=== PATIENT | male | born 1945 | race Caucasian/White ===

== ENCOUNTER 2021-01-25 16:09 | Inpatient (IN) | payer MEDICARE, OTHER ==
[~2021-01-25] VITALS: Ht 185.4 cm; Wt 156.6 kg
[2021-01-25 17:13] LABS: HEMOGLOBIN 10.8 gm/dl (14.0-17.5); RED BLOOD COUNT 3.33 M/UL (4.20-5.50)
[2021-01-25 17:40] LABS: BUN/CREATININE RATIO 15 (0-10)
[2021-01-26 00:29] LABS: HEMOGLOBIN 10.8 gm/dl (14.0-17.5)
[2021-01-26] MEDS ORDERED: BUMETANIDE2 MG PO (01:36)
[2021-01-26] MEDS ORDERED: PACERONE200 MG PO (01:37)
[2021-01-26] MEDS ORDERED: ZOLOFT50 MG PO (01:38)
[2021-01-26] MEDS ORDERED: ASPIRIN 325MG325 MG PO (01:38)
[2021-01-26] MEDS ORDERED: SIMVASTATIN10 MG PO (01:39)
[2021-01-26] MEDS ORDERED: TAMSULOSIN HCL0.4 MG PO (01:39)
[2021-01-26] MEDS ORDERED: DOCUSATE SODIU100 M1 PO (01:40)
[2021-01-26] MEDS ORDERED: HYDROCODON-ACE1 EAC6 PO (01:41)
[2021-01-26] MEDS ORDERED: VITAMIN D21250 MCG PO (01:43)
[2021-01-26] MEDS ORDERED: LEVOTHYROXINE25 MC1 PO (01:43)
[2021-01-26] MEDS ORDERED: MIRTAZAPINE7.5 MG PO (01:44)
[2021-01-26] MEDS ORDERED: NEURONTIN300 MG PO (01:45)
[2021-01-26] MEDS ORDERED: ENULOSE10 GM/15 M PO (01:45)
[2021-01-26] MEDS ORDERED: FERROUS SULFAT325 MG PO (01:46)
[2021-01-26] MEDS ORDERED: FLONASE 0.05% N16 GM (01:47)
[2021-01-26] MEDS ORDERED: POTASSIUM CHLO20 ME1 PO (01:49)
[2021-01-26] MEDS ORDERED: ZAROXOLYN/DIUL2.5 MG PO (01:54)
[2021-01-26] MEDS ORDERED: ALLOPURINOL300 MG PO (01:55)
[2021-01-26] MEDS ORDERED: HUMULIN N100 UNIT/1 SC (01:56)
[2021-01-26] MEDS ORDERED: ZOFRAN4 MG PO (01:58)
[2021-01-26] MEDS ORDERED: NOVOLIN 70100 UNIT/1 SQ (01:58)
[2021-01-26] MEDS ORDERED: MILK OF MA400 MG/5 M PO (01:59)
[2021-01-26] MEDS ORDERED: ADULT GLYCERIN1 EACH PR (02:00)
[2021-01-26 06:07] LABS: HEMOGLOBIN 10.3 gm/dl (14.0-17.5); RED BLOOD COUNT 3.15 M/UL (4.20-5.50); WHITE BLOOD COUNT 6.7 K/UL (4.5-11.0)
--- NOTE | 2021-01-27 02:23 | NUR ---
01/27/2021 @ 00:10 - Patient placed on bariatric bed. 3 AUTOMATION ANALYST's and one RN present. Patient tolerated well.
[2021-01-27 05:06] LABS: HEMOGLOBIN 9.4 gm/dl (14.0-17.5); RED BLOOD COUNT 2.93 M/UL (4.20-5.50); WHITE BLOOD COUNT 6.5 K/UL (4.5-11.0)
[2021-01-27 09:12] LABS: HBSAG SCREEN Negative (Negative); HEP A AB, IGM Negative (Negative); HEP B CORE AB, IGM Negative (Negative); HEP C VIRUS AB <0.1 (0.0-0.9)
[2021-01-28 07:39] LABS: HEMOGLOBIN 9.1 gm/dl (14.0-17.5); RED BLOOD COUNT 2.9 M/UL (4.20-5.50)
[2021-01-28 09:10] LABS: CREATININE, URINE 48.2 mg/dL (Not Estab.)
[2021-01-29 05:51] LABS: HEMOGLOBIN 9.4 gm/dl (14.0-17.5); RED BLOOD COUNT 2.9 M/UL (4.20-5.50); WHITE BLOOD COUNT 6.4 K/UL (4.5-11.0)
[2021-01-30 03:22] LABS: HEMOGLOBIN 9.1 gm/dl (14.0-17.5); RED BLOOD COUNT 2.85 M/UL (4.20-5.50); WHITE BLOOD COUNT 6.6 K/UL (4.5-11.0)
[2021-01-30 07:13] LABS: COMPLEMENT C3, SERUM 106 mg/dL (82-167); COMPLEMENT C4, SERUM 21 mg/dL (12-38)
[2021-01-30 13:47] LABS: URINE CREATININE 68.4 mg/dL
[2021-01-30 16:13] LABS: ALBUMIN 2.9 g/dL (2.9-4.4); ALPHA-1-GLOBULIN 0.2 g/dL (0.0-0.4); ALPHA-2-GLOBULIN 0.6 g/dL (0.4-1.0); BETA GLOBULIN 0.9 g/dL (0.7-1.3); GAMMA GLOBULIN 1.4 g/dL (0.4-1.8); GLOBULIN, TOTAL 3.1 g/dL (2.2-3.9); IMMUNOGLOBULIN A, QN, SERUM 467 mg/dL (61-437); IMMUNOGLOBULIN G, QN, SERUM 1348 mg/dL (603-1613); IMMUNOGLOBULIN M, QN, SERUM 113 mg/dL (15-143); M-SPIKE Not Observed g/dL (Not Observed)
--- NOTE | 2021-01-31 01:06 | NUR ---
CALLED PATIENTS DAVID TO OBTAIN VERBAL CONSENT FOR PROCEDURE AND RIVAS WITNESSED BY RONDA.
[2021-01-31 04:06] LABS: HEMOGLOBIN 9.5 gm/dl (14.0-17.5); RED BLOOD COUNT 2.94 M/UL (4.20-5.50); WHITE BLOOD COUNT 6.1 K/UL (4.5-11.0)
--- NOTE | 2021-01-31 10:05 | NUR ---
PATIENT RETURNED FROM O.R, HE HAS A DIALYSIS CATH TO THE RIGHT NECK, TAPE WAS LOOSE SO I REINFORCED WITH CLOTH TAPE. HE HAS A NEW SKIN TEAR TO THE RIGHT FOREARM, TEGADERM WAS PLACED BY O.R. ALL OTHER ASSESSMENTS ARE WNL FROM PRE SURGERY.
[2021-02-01 07:17] LABS: HEMOGLOBIN 9.5 gm/dl (14.0-17.5); RED BLOOD COUNT 2.95 M/UL (4.20-5.50); WHITE BLOOD COUNT 6.3 K/UL (4.5-11.0)
[2021-02-01 15:14] LABS: ANTIMYELOPEROXIDASE (MPO) ABS <9.0 U/mL (0.0-9.0); ANTIPROTEINASE 3 (PR-3) ABS <3.5 U/mL (0.0-3.5); ATYPICAL PANCA <1:20 titer (Neg:<1:20); CYTOPLASMIC (C-ANCA) <1:20 titer (Neg:<1:20); PERINUCLEAR (P-ANCA) <1:20 titer (Neg:<1:20)
[2021-02-02 07:51] LABS: HEMOGLOBIN 8.8 gm/dl (14.0-17.5); RED BLOOD COUNT 2.8 M/UL (4.20-5.50); WHITE BLOOD COUNT 5.7 K/UL (4.5-11.0)
[2021-02-03 08:22] LABS: HEMOGLOBIN 8.9 gm/dl (14.0-17.5); RED BLOOD COUNT 2.81 M/UL (4.20-5.50); WHITE BLOOD COUNT 5.1 K/UL (4.5-11.0)
[2021-02-04 07:33] LABS: HEMOGLOBIN 9.2 gm/dl (14.0-17.5); RED BLOOD COUNT 2.88 M/UL (4.20-5.50); WHITE BLOOD COUNT 5.1 K/UL (4.5-11.0)
[2021-02-05 06:48] LABS: HEMOGLOBIN 9.2 gm/dl (14.0-17.5); RED BLOOD COUNT 2.87 M/UL (4.20-5.50); WHITE BLOOD COUNT 4.9 K/UL (4.5-11.0)
[2021-02-06 06:27] LABS: HEMOGLOBIN 8.9 gm/dl (14.0-17.5); RED BLOOD COUNT 2.81 M/UL (4.20-5.50); WHITE BLOOD COUNT 5.4 K/UL (4.5-11.0)
--- NOTE | 2021-02-06 08:45 | NUR ---
PT TAKEN TO DIALYSIS , NO DISTRESS NOTED
--- NOTE | 2021-02-06 15:12 | NUR ---
PT HAS HAD A LARGE BOWEL MOVEMENT, HE IS RESTING AT TH TIME AND HAS HIS CALL HAWK AND PHONE IN REACH. DENIES NEEDS OR C/O AT [facility] TIME
--- NOTE | 2021-02-06 17:51 | NUR ---
chest tube output 140cc
[2021-02-07 07:00] LABS: HEMOGLOBIN 9.2 gm/dl (14.0-17.5); RED BLOOD COUNT 2.84 M/UL (4.20-5.50); WHITE BLOOD COUNT 5.4 K/UL (4.5-11.0)
[2021-02-08 08:57] LABS: HEMOGLOBIN 9.4 gm/dl (14.0-17.5); RED BLOOD COUNT 2.89 M/UL (4.20-5.50); WHITE BLOOD COUNT 5.1 K/UL (4.5-11.0)
--- NOTE | 2021-02-08 17:32 | NUR ---
pt taken to dialysis via bed.
[2021-02-09 06:11] LABS: HEMOGLOBIN 9.2 gm/dl (14.0-17.5); RED BLOOD COUNT 2.81 M/UL (4.20-5.50)
[2021-02-10 06:12] LABS: HEMOGLOBIN 8.7 gm/dl (14.0-17.5); RED BLOOD COUNT 2.7 M/UL (4.20-5.50); WHITE BLOOD COUNT 4.7 K/UL (4.5-11.0)
[2021-02-11 06:57] LABS: HEMOGLOBIN 9.1 gm/dl (14.0-17.5); RED BLOOD COUNT 2.8 M/UL (4.20-5.50); WHITE BLOOD COUNT 5.1 K/UL (4.5-11.0)
[2021-02-12 06:23] LABS: HEMOGLOBIN 8.7 gm/dl (14.0-17.5); RED BLOOD COUNT 2.71 M/UL (4.20-5.50); WHITE BLOOD COUNT 4.6 K/UL (4.5-11.0)
[2021-02-13 07:35] LABS: HEMOGLOBIN 9.1 gm/dl (14.0-17.5); RED BLOOD COUNT 2.89 M/UL (4.20-5.50); WHITE BLOOD COUNT 4.3 K/UL (4.5-11.0)
[2021-02-14 03:58] LABS: HEMOGLOBIN 8.9 gm/dl (14.0-17.5); RED BLOOD COUNT 2.79 M/UL (4.20-5.50); WHITE BLOOD COUNT 4.3 K/UL (4.5-11.0)
[2021-02-15 07:25] LABS: HEMOGLOBIN 8.9 gm/dl (14.0-17.5); RED BLOOD COUNT 2.82 M/UL (4.20-5.50); WHITE BLOOD COUNT 4.8 K/UL (4.5-11.0)
[2021-02-16 03:42] LABS: RED BLOOD COUNT 2.81 M/UL (4.20-5.50)
[2021-02-17 06:43] LABS: HEMOGLOBIN 9.1 gm/dl (14.0-17.5); RED BLOOD COUNT 2.85 M/UL (4.20-5.50); WHITE BLOOD COUNT 4.5 K/UL (4.5-11.0)
[2021-02-18 06:57] LABS: HEMOGLOBIN 9.1 gm/dl (14.0-17.5); RED BLOOD COUNT 2.82 M/UL (4.20-5.50); WHITE BLOOD COUNT 4.6 K/UL (4.5-11.0)
[2021-02-19 04:08] LABS: RED BLOOD COUNT 2.81 M/UL (4.20-5.50); WHITE BLOOD COUNT 5.4 K/UL (4.5-11.0)
[2021-02-20 07:48] LABS: HEMOGLOBIN 8.8 gm/dl (14.0-17.5); RED BLOOD COUNT 2.81 M/UL (4.20-5.50); WHITE BLOOD COUNT 4.2 K/UL (4.5-11.0)
--- NOTE | 2021-02-20 13:47 | NUR ---
patient back on the floor from dialysis.
[2021-02-21 04:11] LABS: HEMOGLOBIN 8.4 gm/dl (14.0-17.5); RED BLOOD COUNT 2.63 M/UL (4.20-5.50); WHITE BLOOD COUNT 4.2 K/UL (4.5-11.0)
[2021-02-22 03:37] LABS: RED BLOOD COUNT 2.81 M/UL (4.20-5.50); WHITE BLOOD COUNT 4.5 K/UL (4.5-11.0)
--- NOTE | 2021-02-22 12:16 | NUR ---
patient back on the floor, report received from dialysis nurse he will be back down for his dialysis r/t his catheter not working.
[2021-02-23 03:06] LABS: HEMOGLOBIN 9.3 gm/dl (14.0-17.5); RED BLOOD COUNT 2.83 M/UL (4.20-5.50); WHITE BLOOD COUNT 4.5 K/UL (4.5-11.0)
[2021-02-24 02:27] LABS: HEMOGLOBIN 8.9 gm/dl (14.0-17.5); RED BLOOD COUNT 2.79 M/UL (4.20-5.50); WHITE BLOOD COUNT 4.6 K/UL (4.5-11.0)
[2021-02-24 09:13] LABS: HBSAG SCREEN Negative (Negative); HEPATITIS B SURF AB QUANT <3.1 mIU/mL (Immunity>9.9)
[2021-02-26 04:13] LABS: RED BLOOD COUNT 2.82 M/UL (4.20-5.50)
[2021-02-27 06:51] LABS: HEMOGLOBIN 9.2 gm/dl (14.0-17.5); RED BLOOD COUNT 2.91 M/UL (4.20-5.50); WHITE BLOOD COUNT 4.2 K/UL (4.5-11.0)
[2021-02-28 02:37] LABS: HEMOGLOBIN 9.2 gm/dl (14.0-17.5); RED BLOOD COUNT 2.92 M/UL (4.20-5.50)
[2021-02-28 12:13] LABS: HBSAG SCREEN Negative (Negative); HEP A AB, IGM Negative (Negative); HEP B CORE AB, IGM Negative (Negative); HEP C VIRUS AB <0.1 (0.0-0.9)
[2021-03-01 07:37] LABS: HEMOGLOBIN 8.8 gm/dl (14.0-17.5); RED BLOOD COUNT 2.82 M/UL (4.20-5.50); WHITE BLOOD COUNT 4.1 K/UL (4.5-11.0)
[2021-03-02 07:17] LABS: HEMOGLOBIN 9.7 gm/dl (14.0-17.5); RED BLOOD COUNT 2.95 M/UL (4.20-5.50); WHITE BLOOD COUNT 4.5 K/UL (4.5-11.0)
--- NOTE | 2021-03-02 18:04 | NUR ---
PT IS PLANNING ON BEING DISCHARGED TO [facility] FRIDAY, MARCH 05, 2021. PT IS REQUIRED TO HAVE A NEGATIVE TB TEST BUT ACCORDING TO DR. ALBARADO, THE [facility] WILL NOT TAKE A CHEST X-RAY. QUANTIFERON GOLD TEST HAS BEEN PERFORMED, PENDING RESULTS. OPTIONS CONSIDERED SUCH TB SKIN TEST VS SPUTUM CULTURE. SPOKE WITH LAB AND THE LAB NO LONGER PERFORMS THE TB SKIN TEST HERE IN THE HOSPITAL. SPUTUM CULTURE WILL TAKE A WHILE TO PROCESS AND RETURN WITH RESULTS. PENDING NEGATIVE RESULTS FOR DISCHARGE TO [facility].
[2021-03-03 06:25] LABS: HEMOGLOBIN 9.5 gm/dl (14.0-17.5); RED BLOOD COUNT 2.97 M/UL (4.20-5.50); WHITE BLOOD COUNT 5.2 K/UL (4.5-11.0)
[2021-03-04 06:55] LABS: HEMOGLOBIN 9.4 gm/dl (14.0-17.5); RED BLOOD COUNT 2.93 M/UL (4.20-5.50); WHITE BLOOD COUNT 4.3 K/UL (4.5-11.0)
[2021-03-05 07:20] LABS: HEMOGLOBIN 9.6 gm/dl (14.0-17.5); RED BLOOD COUNT 3.07 M/UL (4.20-5.50); WHITE BLOOD COUNT 4.7 K/UL (4.5-11.0)
[2021-03-06 06:14] LABS: HEMOGLOBIN 9.5 gm/dl (14.0-17.5); RED BLOOD COUNT 3.01 M/UL (4.20-5.50); WHITE BLOOD COUNT 4.8 K/UL (4.5-11.0)
--- NOTE | 2021-03-06 10:24 | NUR ---
pt gone to dialysis at 0930 with transport
[2021-03-07 06:59] LABS: HEMOGLOBIN 10.2 gm/dl (14.0-17.5); RED BLOOD COUNT 3.11 M/UL (4.20-5.50)
[2021-03-07 07:02] LABS: WHITE BLOOD COUNT 6.5 K/UL (4.5-11.0)
--- NOTE | 2021-03-07 08:19 | NUR ---
PATIENT TB SKIN TEST IS NEGATIVE
[2021-03-07 09:14] LABS: QUANTIFERON MITOGEN VALUE >10.00 IU/mL (.); QUANTIFERON NIL VALUE 0.17 IU/mL (.); QUANTIFERON TB1 AG VALUE 0.17 IU/mL (.); QUANTIFERON TB2 AG VALUE 0.14 IU/mL (.); QUANTIFERON-TB GOLD PLUS Negative (Negative)
[2021-03-07] MEDS ORDERED: HYDROCODON-ACE1 EAC6 PO (09:22)
[2021-03-07] MEDS ORDERED: NEURONTIN300 MG PO (09:22)
[2021-03-07] MEDS ORDERED: IPRAT-ALBUT 0.5-3 ML NEB (09:22)
[2021-03-07] MEDS ORDERED: XIFAXAN 550 MG550 MG PO (09:22)
[2021-03-07] MEDS ORDERED: HUMALOG 10100 UNITS/ SC ×2 (09:22)
[2021-03-07] MEDS ORDERED: ALLOPURINOL100 MG PO (09:22)
[2021-03-07] MEDS ORDERED: LANTUS INS100 UTS/M1 SQ (09:22)
--- NOTE | 2021-03-07 12:39 | NUR ---
CALLED REPORT TO ASHUTOSH CASON RN AT [facility]. LET [facility] KNOW PATIENT NEEDS TRANSFER, THEY COULD NOT GIVE ESTIMATED TIME. WCTM CLOSELY.
== END 2021-03-07 18:40 | DRG 673 ==
LOC: ER1 16:09 → CDU 18:37 → M/S 18:37
PROVIDERS: Internal Medicine; Internal Medicine Nephrology; Nurse Practitioner; Physician Assistant; Surgery; ADMIT Internal Medicine
PROC: 0JH63XZ Insertion of Tunneled Vascular Access Device into Chest Subcutaneous Tissue and Fascia, Percutaneous Approach (ICD-10-PCS; 2021-01-31)
PROC: 02HV33Z Insertion of Infusion Device into Superior Vena Cava, Percutaneous Approach (ICD-10-PCS; 2021-01-31)
PROC: 5A1D70Z Performance of Urinary Filtration, Intermittent, Less than 6 Hours Per Day (ICD-10-PCS; principal; 2021-01-31 07:30)
DX: N17.9 Acute kidney failure, unspecified (principal); K72.00 Acute and subacute hepatic failure without coma; E66.2 Morbid (severe) obesity with alveolar hypoventilation; Z20.822 Contact with and (suspected) exposure to COVID-19; Z68.43 Body mass index [BMI] 50.0-59.9, adult; J96.11 Chronic respiratory failure with hypoxia; I13.2 Hypertensive heart and chronic kidney disease with heart failure and with stage 5 chronic kidney disease, or end stage renal disease; L03.116 Cellulitis of left lower limb; L03.115 Cellulitis of right lower limb; J96.12 Chronic respiratory failure with hypercapnia; I25.10 Atherosclerotic heart disease of native coronary artery without angina pectoris; N18.6 End stage renal disease; E87.6 Hypokalemia; N25.81 Secondary hyperparathyroidism of renal origin; G89.29 Other chronic pain; I87.2 Venous insufficiency (chronic) (peripheral); I48.0 Paroxysmal atrial fibrillation; E11.22 Type 2 diabetes mellitus with diabetic chronic kidney disease; I89.0 Lymphedema, not elsewhere classified; L30.9 Dermatitis, unspecified; E88.09 Other disorders of plasma-protein metabolism, not elsewhere classified; D63.1 Anemia in chronic kidney disease; K75.81 Nonalcoholic steatohepatitis (NASH); D53.9 Nutritional anemia, unspecified; G25.3 Myoclonus; K74.60 Unspecified cirrhosis of liver; E87.5 Hyperkalemia; E78.5 Hyperlipidemia, unspecified; E55.9 Vitamin D deficiency, unspecified; M10.9 Gout, unspecified; L89.152 Pressure ulcer of sacral region, stage 2; K59.00 Constipation, unspecified; F41.9 Anxiety disorder, unspecified; N40.0 Benign prostatic hyperplasia without lower urinary tract symptoms; E11.43 Type 2 diabetes mellitus with diabetic autonomic (poly)neuropathy; E11.21 Type 2 diabetes mellitus with diabetic nephropathy; J44.9 Chronic obstructive pulmonary disease, unspecified; Z95.5 Presence of coronary angioplasty implant and graft; Z98.890 Other specified postprocedural states; Z79.82 Long term (current) use of aspirin; Z79.899 Other long term (current) drug therapy; Z79.52 Long term (current) use of systemic steroids; Z82.49 Family history of ischemic heart disease and other diseases of the circulatory system; Z83.3 Family history of diabetes mellitus; Z99.2 Dependence on renal dialysis; Z99.81 Dependence on supplemental oxygen
CPT/HCPCS: 36415; 36600; 70450; 71045; 73020; 74018; 76705; 77001; 80048; 80053; 80074; 81001; 82043; 82140; 82550; 82553; 82570; 82575; 82728; 82784; 82803; 82962; 83520; 83540; 83550; 83735; 83874; 83880; 84100; 84155; 84156; 84165; 84484; 85014; 85018; 85025; 85027; 85610; 86038; 86140; 86160; 86256; 86317; 86334; 86850; 86900; 86901; 87340; 90935; 90937; 93005; 93970; 94640; 94664; 94760; 97110; 97110-GP-CQ; 97161; 97166; 97530; 97530-GP-CQ; 99284; C1750; C1769; C1788; C9113; J0690; J0696; J1100; J1642; J1644; J1650; J1940; J2001; J2354; J2405; J2704; J2997; J3010; J7030; J7040; J7120; P9047; U0002